=== PATIENT | male | born 1965 | race Caucasian/White ===

== ENCOUNTER 2016-12-14 08:08 | Inpatient (IN) | payer OTHER ==
[~2016-12-14] VITALS: Ht 180.3 cm; Wt 84.3 kg
[2016-12-14 08:13] VITALS: BP 176/88; PULSE 85; RESP 16; TEMP 98.2; O2SAT 99
[2016-12-14] MEDS ORDERED: NOVOLOGP2 SQ (09:41)
[2016-12-14] MEDS ORDERED: CIPR500T2 PO (09:41)
[2016-12-14] MEDS ORDERED: LANTUS2P SQ (09:41)
[2016-12-14] MEDS ORDERED: VANCOMYCIN INJ 1,000 MG in SODIUM CHLOR 0.9% 250 ML INJ 250 ML IV STA (10:13)
[2016-12-14] MEDS ORDERED: AZTREONAM INJ 2,000 MG in SODIUM CHLORIDE 0.9% INJ 100 ML IV STA (10:13)
--- NOTE | 2016-12-14 10:53 | RADRPT ---
EXAM DATE/TIME: 12/14/2016 10:43 [facility] COMPARISON: No previous studies available for comparison. INDICATIONS : Shortness of breath. MEDICAL HISTORY : Diabetes mellitus type II. SURGICAL HISTORY : None. ENCOUNTER: Initial ACUITY: 1 day PAIN SCORE: 0/10 LOCATION: Bilateral chest FINDINGS: A single view of the chest demonstrates the lungs to be symmetrically aerated without evidence of mas s, infiltrate or effusion. The cardiomediastinal contours are unremarkable. Osseous structures are intact. CONCLUSION: No acute disease. Nando Odonnell MD FACR on December 14, 2016 at 10:51 Board Certified Radiologist. This report was verified electronically.
--- NOTE | 2016-12-14 11:20 | RADRPT ---
EXAM DATE/TIME: 12/14/2016 10:38 [facility] COMPARISON: No previous studies available for comparison. INDICATIONS: Left foot pain, possible infection. MEDICAL HISTORY: Diabetes mellitus type II. SURGICAL HISTORY: None. ENCOUNTER: Initial ACUITY: 3 days PAIN SCORE: 6/10 LOCATION: Left foot, fourth digit FINDINGS: There is bony destruction proximal phalanx fourth toe consistent with osteomyelitis. There is air in the soft tissues. CONCLUSION: Findings consistent with osteomyelitis fourth toe. Nando Odonnell MD FACR on December 14, 2016 at 10:59 Board Certified Radiologist. This report was verified electronically.
--- NOTE | 2016-12-14 11:22 | RADRPT ---
EXAM DATE/TIME: 12/14/2016 10:41 [facility] COMPARISON: No previous studies available for comparison. INDICATIONS: Left ankle pain, no injury. MEDICAL HISTORY: Diabetes mellitus type II. SURGICAL HISTORY: None. ENCOUNTER: Initial ACUITY: 3 days PAIN SCORE: 6/10 LOCATION: Left lateral ankle FINDINGS: There is generalized soft tissue swelling evident. Bone density is normal, alignment is anatomic. F racture is not appreciated. CONCLUSION: Generalized soft tissue swelling otherwise negative. Nando Odonnell MD FACR on December 14, 2016 at 10:59 Board Certified Radiologist. This report was verified electronically.
[2016-12-14 11:32] VITALS: O2SAT 96
[2016-12-14 11:42] LABS: BASOPHIL % 0.5 % (0.0-2.0); EOSINOPHIL # 0.1 TH/MM3 (0-0.4); EOSINOPHIL % 0.9 % (0.0-4.0); HEMATOCRIT 31.5 % (39.0-51.0); HEMO FLAGS DIFF FINAL; LYMPH % 18.5 % (9.0-44.0); LYMPHOCYTE # 1.8 TH/MM3 (1.0-4.8); MEAN CELL VOLUME 91.6 FL (80.0-100.0); MEAN CORPUSCULAR HEMOGLOBIN 31.2 PG (27.0-34.0); MEAN CORPUSCULAR HGB CONC 34.1 % (32.0-36.0); MONO % 7.3 % (0.0-8.0); NEUT % 72.8 % (16.0-70.0); PLATELET COUNT 368 TH/MM3 (150-450); RED BLOOD COUNT 3.44 MIL/MM3 (4.50-5.90); RED CELL DISTRIBUTION WIDTH 13.5 % (11.6-17.2); WHITE BLOOD COUNT 9.6 TH/MM3 (4.0-11.0)
[2016-12-14 11:50] LABS: APTT (PATIENT) 37.3 SEC (24.3-30.1); INTERNATIONAL NORMALIZED RATIO 1.1 RATIO; PROTHROMBIN TIME - PATIENT 12.2 SEC (9.8-11.6)
--- NOTE | 2016-12-14 11:56 | PD ---
HPI Chief Complaint: Abnormal Results Time Seen by Provider: 10:06 Travel History International Travel<30 days: No Contact w/Intl Traveler<30days: No Traveled to known affect area: No History of Present Illness HPI Patient is a 51-year-old male presents emergency department for evaluation of left fourth toe infection. He is a diabetic. Has been following outpatient with Eliana Dimas Dr. podiatry medicine. Patient was sent here on her orders for consideration of admission IV antibiotics and podiatry consultation. PFSH Past Medical History Diabetes: Yes Patient Takes Glucophage: No Diminished Hearing: No Tetanus Vaccination: < 5 Years Influenza Vaccination: No Past Surgical History Tonsillectomy: Yes Social History Alcohol Use: No Tobacco Use: Yes (11/07 ppd) Substance Use: No Allergies-Medications (Allergen,Severity, Reaction): Coded Allergies: Penicillin (Verified Allergy, Unknown, 12/14/16) Reported Meds & Prescriptions Reported Meds & Active Scripts Active Reported Novolog Inj (Insulin Aspart) 1,000 Unit/10 Ml Vial 0 SQ DIRECTED Sliding Scale as directed. Lantus Inj (Insulin Glargine) 1,000 Unit/10 Ml Vial 30 Units SQ BID Ciprofloxacin (Ciprofloxacin HCl) 500 Mg Tab 500 Mg PO BID Physical Exam Narrative GENERAL: WD/WN in nad. SKIN: Warm and dry. HEAD: Atraumatic. Normocephalic. EYES: Pupils equal and round. No scleral icterus. No injection or drainage. ENT: No nasal bleeding or discharge. Mucous membranes pink and moist. NECK: Trachea midline. No JVD. CARDIOVASCULAR: Regular rate and rhythm. RESPIRATORY: No accessory muscle use. Clear to auscultation. Breath sounds equal bilaterally. GASTROINTESTINAL: Abdomen soft, non-tender, nondistended. Hepatic and splenic margins not palpable. MUSCULOSKELETAL: Extremities without clubbing, cyanosis. There is erythema and swelling of the left foot terminating right at the ankle. There are signs of adequate perfusion of the foot except for the left fourth toe. This toe has discharge, smells of pseudomonas. It is abraided away in the dorsal direction and is ischemic distally to the break in the skin ( approximately 2/3 the length of the toe). there is some mild edema at the ankle as well. No other breakages of the skin seen. RLE is WNL. NEUROLOGICAL: Awake and alert. No obvious cranial nerve deficits. Motor grossly within normal limits. Five out of 5 muscle strength in the arms and legs. Normal speech. PSYCHIATRIC: Appropriate mood and affect; insight and judgment normal. Data Data Last Documented VS Vital Signs Date Time Temp Pulse Resp B/P Pulse Ox O2 Delivery O2 Flow Rate FiO2 12/14/16 12:30 74 17 168/80 97 Room Air 12/14/16 08:13 98.2 Orders Electrocardiogram (12/14/16 10:13) Complete Blood Count With Diff (12/14/16 10:13) Comprehensive Metabolic Panel (12/14/16 10:13) Prothrombin Time / Inr (Pt) (12/14/16 10:13) Act Partial Throm Time (Ptt) (12/14/16 10:13) Lactic Acid Sepsis Protocol (12/14/16 10:13) Magnesium (Mg) (12/14/16 10:13) Phosphorus (Po4) (12/14/16 10:13) Ckmb (Isoenzyme) Profile (12/14/16 10:13) Troponin I (12/14/16 10:13) Urinalysis - C+S If Indicated (12/14/16 10:13) Blood Culture (12/14/16 10:13) Chest, Single Ap (12/14/16 10:13) Blood Glucose (12/14/16 10:13) Ecg Monitoring (12/14/16 10:13) Iv Access Insert/Monitor (12/14/16 10:13) Oximetry (12/14/16 10:13) Oxygen Administration (12/14/16 10:13) Vancomycin Inj (Vancomycin Inj) (12/14/16 10:13) Aztreonam Inj (Azactam Inj) (12/14/16 10:13) Foot, Complete (Uqs2bcm) (12/14/16 ) Ankle, Complete (Tsn2oxb) (12/14/16 ) ^ Other Nursing Orders (12/14/16 12:08) Diet 1800 Ada Cons Carb (12/14/16 Lunch) Vital Signs (Adult) KULWINDER.Q4H (12/14/16 12:54) Acetaminophen (Tylenol) (12/14/16 13:00) ^ Blood Glucose Goal (Criteria (12/14/16 12:54) ^ Hypoglycemia 51 - 69 Mg/Dl (12/14/16 12:54) ^ Hypoglycemia 50 Mg/Dl Or < (12/14/16 12:54) ^ Notify Dr: Other (12/14/16 12:54) Dextrose 50% In Dashawn (Vial) Inj (D50w (Vi (12/14/16 13:00) Glucagon Inj (Glucagon Inj) (12/14/16 13:00) Insulin Aspart Supplemtl Scale (Novolog (12/14/16 16:00) Ondansetron Inj (Zofran Inj) (12/14/16 13:00) Consult Podiatry (12/14/16 ) Admit Order (Ed Use Only) (12/14/16 ) Labs Laboratory Tests Test 12/14/16 12/14/16 11:10 11:15 White Blood Count 9.6 TH/MM3 Red Blood Count 3.44 MIL/MM3 Hemoglobin 10.7 GM/DL Hematocrit 31.5 % Mean Corpuscular Volume 91.6 FL Mean Corpuscular Hemoglobin 31.2 PG Mean Corpuscular Hemoglobin 34.1 % Concent Red Cell Distribution Width 13.5 % Platelet Count 368 TH/MM3 Mean Platelet Volume 6.6 FL Neutrophils (%) (Auto) 72.8 % Lymphocytes (%) (Auto) 18.5 % Monocytes (%) (Auto) 7.3 % Eosinophils (%) (Auto) 0.9 % Basophils (%) (Auto) 0.5 % Neutrophils # (Auto) 7.0 TH/MM3 Lymphocytes # (Auto) 1.8 TH/MM3 Monocytes # (Auto) 0.7 TH/MM3 Eosinophils # (Auto) 0.1 TH/MM3 Basophils # (Auto) 0.0 TH/MM3 CBC Comment DIFF FINAL Differential Comment Erythrocyte Sedimentation Rate GREATER THAN 140 mm/hr Prothrombin Time 12.2 SEC Prothromb Time International 1.1 RATIO Ratio Activated Partial 37.3 SEC Thromboplast Time Sodium Level 138 MEQ/L Potassium Level 4.4 MEQ/L Chloride Level 110 MEQ/L Carbon Dioxide Level 19.4 MEQ/L Anion Gap 9 MEQ/L Blood Urea Nitrogen 19 MG/DL Creatinine 1.21 MG/DL Estimat Glomerular Filtration 63 ML/MIN Rate Random Glucose 116 MG/DL Calcium Level 8.7 MG/DL Phosphorus Level 3.4 MG/DL Magnesium Level 2.0 MG/DL Total Bilirubin 0.2 MG/DL Aspartate Amino Transf 28 U/L (AST/SGOT) Alanine Aminotransferase 29 U/L (ALT/SGPT) Alkaline Phosphatase 142 U/L Total Creatine Kinase 74 U/L Troponin I LESS THAN 0.02 NG/ML Total Protein 7.3 GM/DL Albumin 2.6 GM/DL Lactic Acid Level 0.9 mmol/L [facility] Medical Decision Making Medical Screen Exam Complete: Yes Emergency Medical Condition: Yes Differential Diagnosis Osteomyelitis, Wet gangrene of toe, sepsis, diabetes mellitus, arterial blockage unlikely. Narrative Course CATHERINE performed and WNL. Patient appears well and non-toxic. Foot appears cellulitis and i have high concern for osteomyelitis. Patient does have note from his commercial baker helper to start broad spectrum and admit to Dr. Wagner for surgical intervention. Patient discussed with Dr. Wagner who is expecting patient. for partial amputation the morning. Discussed with him MRI and will defer to admitting team. He is being covered for osteomyelitis. My concern for ischemic foot is low and i believe risks of contrast induced nephropathy outweigh benefits of CTA at this time.. Last 24 hours Impressions Chest X-Ray 12/14/16 1013 Signed Impressions: Service Date/Time: Wednesday, December 14, 2016 10:43 - CONCLUSION: No acute disease. Nando Odonnell MD FACR Foot X-Ray 12/14/16 0000 Signed Impressions: Service Date/Time: Wednesday, December 14, 2016 10:38 - CONCLUSION: Findings consistent with osteomyelitis fourth toe. Nando Odonnell MD FACR Ankle X-Ray 12/14/16 0000 Signed Impressions: Service Date/Time: Wednesday, December 14, 2016 10:41 - CONCLUSION: Generalized soft tissue swelling otherwise negative. Nando Odonnell MD FACR Diagnosis Primary Impression: Diabetic wet gangrene of the foot Additional Impression: Osteomyelitis of toe Admitting Information Admitting Physician Requests: Admit Condition: Stable Jaycob Deleon MD Dec 14, 2016 11:56
[2016-12-14 12:16] LABS: ALKALINE PHOSPHATASE 142 U/L (45-117); ALT (GPT) 29 U/L (12-78); ANION GAP 9 MEQ/L (5-15); AST (GOT) 28 U/L (15-37); BICARBONATE 19.4 MEQ/L (21.0-32.0); BLOOD UREA NITROGEN 19 MG/DL (7-18); CHLORIDE 110 MEQ/L (98-107); GLOMERULAR FILTRATION RATE 63 ML/MIN (>89); POTASSIUM 4.4 MEQ/L (3.5-5.1); SODIUM (NA) 138 MEQ/L (136-145); TOTAL BILIRUBIN ADULT 0.2 MG/DL (0.2-1.0)
[2016-12-14 12:30] VITALS: BP 168/80; PULSE 74; RESP 17; O2SAT 97
[2016-12-14 12:32] LABS: CREATINE KINASE 74 U/L (39-308)
[2016-12-14] MEDS ORDERED: ONDANSETRON HCL 4 MG/2 ML VIAL IV PUSH PRN (13:00)
[2016-12-14] MEDS ORDERED: GLUCAGON 1 MG/ML VIAL OTHER PRN (13:00)
[2016-12-14] MEDS ORDERED: ACETAMINOPHEN 325 MG TAB PO PRN (13:00)
[2016-12-14] MEDS ORDERED: DEXTROSE 50% IN WATER 50 ML VIAL(D50) IV PUSH PRN (13:00)
[2016-12-14] MEDS ORDERED: Vancomycin Consult Pharmacy 1 EA OTHER SCH (13:15)
--- NOTE | 2016-12-14 13:19 | HHI.HP ---
[facility] Service [facility] Primary Care Physician No Primary Care Physician Admission Diagnosis Osteomyelitis and gangrene of toe. Diagnoses: (1) Osteomyelitis of toe Diagnosis: Principal Chief Complaint: infection of the left fourth toe Travel History International Travel<30 Days: No Contact w/Intl Traveler <30 Da: No Traveled to Known Affected Are: No History of Present Illness patient is a 51 y/o male with history of diabetes who was sent to the hospital because of the worsening infection of the left fourth toe. he says that it started two weeks ago with some swelling and pain to the site. he took two different antibiotics for two weeks with no significant improvement. he reports low grade fever at home. he was seen by his product lister and was supposed to come to the hospital yesterday but he says that he didn't want to wait that long. pain was mild at the time of my evaluation. he denies any other complaints. Review of Systems Constitutional: COMPLAINS OF: Fever, DENIES: Weight loss, Chills, Night Sweats Eyes: DENIES: Blurred vision, Diplopia, Vision loss, Double Vision Ears, nose, mouth, throat: DENIES: Tinnitus, Vertigo, Throat pain, Epistaxis Respiratory: DENIES: Apneas, Cough, Snoring, Wheezing, Hemoptysis, Sputum production, Shortness of breath Cardiovascular: DENIES: Chest pain, Palpitations, Syncope, Dyspnea on Exertion , PND, Lower Extremity Edema, Orthopnea, Claudication Gastrointestinal: DENIES: Abdominal pain, Black stools, Bloody stools, Constipation, Diarrhea, Nausea, Vomiting, Difficulty Swallowing, Anorexia Genitourinary: DENIES: Urinary frequency, Urgency, Hematuria, Dysuria Musculoskeletal: COMPLAINS OF: Joint pain (left foot.), DENIES: Muscle aches, Stiffness, Joint Swelling Integumentary: DENIES: Rash Neurologic: DENIES: Abnormal gait, Headache, Localized weakness, Paresthesias, Seizures, Speech Problems, Tremor, Poor Balance Psychiatric: DENIES: Anxiety, Confusion, Mood changes, Depression, Hallucinations, Agitation, Suicidal Ideation, Homicidal Ideation, Delusions Past Family Social History Past Medical History diabetes mellitus Past Surgical History knee and foot surgery. Reported Medications Novolog Inj (Insulin Aspart) 1,000 Unit/10 Ml Vial 0 SQ DIRECTED Sliding Scale as directed. Lantus Inj (Insulin Glargine) 1,000 Unit/10 Ml Vial 30 Units SQ BID Ciprofloxacin (Ciprofloxacin HCl) 500 Mg Tab 500 Mg PO BID Allergies: Coded Allergies: Penicillin (Verified Allergy, Unknown, 12/14/16) Active Ordered Medications Current Medications Vancomycin HCl 1000 mg/Sodium Chloride 250 ml @ 250 mls/hr ONCE STAT IV Last administered on 12/14/16 11:43; Start 12/14/16 at 10:13; Stop 12/14/16 at 11:12; Status DC Aztreonam/Sodium Chloride (Azactam Inj/NS Inj) 100 ml @ 200 mls/hr ONCE STAT IV Last administered on 12/14/16 13:04; Start 12/14/16 at 10:13; Stop 12/14/16 at 10:42; Status DC Acetaminophen (Tylenol) 650 mg Q4H PRN PO FEVER; Start 12/14/16 at 13:00 Dextrose (D50w (Vial) Inj) 25 ml UNSCH PRN IV PUSH HYPOGLYCEMIA-SEE COMMENTS; Start 12/14/16 at 13:00 Glucagon (Glucagon Inj) 1 mg UNSCH PRN OTHER HYPOGLYCEMIA-SEE COMMENTS; Start 12/14/16 at 13:00 Insulin Aspart (NovoLOG SUPPLEMENTAL SCALE) 1 ACHS SLIDING SCALE SQ ; Start 12/14/16 at 16:00 Ondansetron HCl (Zofran Inj) 4 mg Q8HR PRN IV PUSH NAUSEA; Start 12/14/16 at 13: 00 Family History diabetes. Social History smokes 15 cigarettes a day- doesn't drink. Physical Exam Vital Signs Vital Signs Date Time Temp Pulse Resp B/P Pulse Ox O2 Delivery O2 Flow Rate FiO2 12/14/16 12:30 74 17 168/80 97 Room Air 12/14/16 11:32 96 Room Air 12/14/16 08:13 98.2 85 16 176/88 99 Physical Exam GENERAL: This is a well-nourished, well-developed patient, in no apparent distress. SKIN: infected left fourth toe. HEAD: Atraumatic. Normocephalic. No temporal or scalp tenderness. EYES: Pupils equal round and reactive. Extraocular motions intact. No scleral icterus. No injection or drainage. ENT: Nose without bleeding, purulent drainage or septal hematoma. Throat without erythema, tonsillar hypertrophy or exudate. Uvula midline. Airway patent. NECK: Trachea midline. No JVD or lymphadenopathy. Supple, nontender, no meningeal signs. CARDIOVASCULAR: Regular rate and rhythm without murmurs, gallops, or rubs. RESPIRATORY: Clear to auscultation. Breath sounds equal bilaterally. No wheezes , rales, or rhonchi. GASTROINTESTINAL: Abdomen soft, non-tender, nondistended. No hepato-splenomegaly , or palpable masses. No guarding. MUSCULOSKELETAL: Extremities without clubbing, cyanosis, or edema. No joint tenderness, effusion, or edema noted. No calf tenderness. Negative Homans sign bilaterally. NEUROLOGICAL: Awake and alert. Cranial nerves II through XII intact. Motor and sensory grossly within normal limits. Five out of 5 muscle strength in all muscle groups. Normal speech. Laboratory Laboratory Tests Test 12/14/16 12/14/16 11:10 11:15 White Blood Count 9.6 Red Blood Count 3.44 Hemoglobin 10.7 Hematocrit 31.5 Mean Corpuscular Volume 91.6 Mean Corpuscular Hemoglobin 31.2 Mean Corpuscular Hemoglobin 34.1 Concent Red Cell Distribution Width 13.5 Platelet Count 368 Mean Platelet Volume 6.6 Neutrophils (%) (Auto) 72.8 Lymphocytes (%) (Auto) 18.5 Monocytes (%) (Auto) 7.3 Eosinophils (%) (Auto) 0.9 Basophils (%) (Auto) 0.5 Neutrophils # (Auto) 7.0 Lymphocytes # (Auto) 1.8 Monocytes # (Auto) 0.7 Eosinophils # (Auto) 0.1 Basophils # (Auto) 0.0 CBC Comment DIFF FINAL Differential Comment Prothrombin Time 12.2 Prothromb Time International 1.1 Ratio Activated Partial 37.3 Thromboplast Time Sodium Level 138 Potassium Level 4.4 Chloride Level 110 Carbon Dioxide Level 19.4 Anion Gap 9 Blood Urea Nitrogen 19 Creatinine 1.21 Estimat Glomerular Filtration 63 Rate Random Glucose 116 Calcium Level 8.7 Phosphorus Level 3.4 Magnesium Level 2.0 Total Bilirubin 0.2 Aspartate Amino Transf 28 (AST/SGOT) Alanine Aminotransferase 29 (ALT/SGPT) Alkaline Phosphatase 142 Total Creatine Kinase 74 Troponin I LESS THAN 0.02 Total Protein 7.3 Albumin 2.6 Lactic Acid Level 0.9 Date/Time Procedure Status Source Growth 12/14/16 11:15 Aerobic Blood Culture Received Blood Peripheral Pending 12/14/16 11:15 Anaerobic Blood Culture Received Blood Peripheral Pending Result Diagram: 12/14/16 1110 12/14/16 1110 Imaging Last Impressions Chest X-Ray 12/14/16 1013 Signed Impressions: Service Date/Time: Wednesday, December 14, 2016 10:43 - CONCLUSION: No acute disease. Nando Odonnell MD FACR Assessment and Plan Assessment and Plan A/P - infected/ osteomyelitis of the left fourth toe continue with broad-spectrum IV antibiotics- will follow the cultures- consult podiatry and ID -diabetes mellitus; resume home insulin regimen- accu-check with SSI -DVT prophylaxis; pending podiatry evaluation. Discussed Condition With ER physician and the patient. Physician Certification 2 Midnight Certification Type: Admission for Inpatient Services Order for Inpatient Services The services are ordered in accordance with Medicare regulations or non- Medicare payer requirements, as applicable. In the case of services not specified as inpatient-only, they are appropriately provided as inpatient services in accordance with the 2-midnight benchmark. Estimated LOS (days): 3 days is the estimated time the patient will need to remain in the hospital, assuming treatment plan goals are met and no additional complications. Post-Hospital Plan: Home Tarah Rothman MD Dec 14, 2016 13:19
[2016-12-14 13:25] VITALS: BP_SYST 142; BP_SYST 149; BP_SYST 168; BP_DIAS 68; BP_DIAS 81; PULSE 70
[2016-12-14] MEDS ORDERED: LEVOFLOXACIN 500 MG PREMIX INJ 100 ML IV SCH (14:00)
[2016-12-14] MEDS: ACETAMINOPHEN/HYDROcodone 325 MG/5 MG TAB PO PRN ×2 (14:45→19:47)
[2016-12-14 14:48] VITALS: BP 169/82; PULSE 71; RESP 20; O2SAT 96
--- NOTE | 2016-12-14 15:37 | PD.CONS ---
History of Present Illness Service Infcetious Disease Consult Requested By Dr Rothman Reason for Consult Evaluate patient with osteo L 4th toe Primary Care Physician No Primary Care Physician Diagnoses: History of Present Illness Patient seen and examined. Records reviewed. Patient is a 51-year-old male presented to the hospital for further evaluation of his left fourth toe. His problem started probably about 3-1/2 weeks ago when he noted a sore area on his left fourth toe. He was having some pain, swelling and redness and notices a sore spot on the lateral aspect of that fourth toe where his pinky toe was rubbing. He was not improving so he saw a music pastor 3 days later and he was given a prescription. He had clindamycin 300 3 times a day since November 23, and apparently had a second antibiotic Cipro 500 twice a day which he started taking November 30. He had one episode of fever up to 103. He was not improving and about 3-4 days ago he started noticing a smell. It also started changing color so he saw the music pastor prior to admission and the patient was told to go the hospital for admission. Patient also has noted swelling on his left foot and ankle. Patient however did not present to the hospital until today the day of admission. He denies any respiratory complaints far sore throat of any cough. No nausea or vomiting , abdominal pain or any urinary complaints. Patient states he has neuropathy. Patient despite the problem with his support will continue to wear shoes and not to offloading. Since admission he has not had any fever. His WBC is normal. Sedimentation rate is greater than 140. X-ray of the foot shows osteomyelitis on his left fourth toe. Infectious disease consultation has been requested to evaluate the patient. Review of Systems Constitutional: COMPLAINS OF: Fever, DENIES: Chills Eyes: DENIES: Eye pain Ears, nose, mouth, throat: DENIES: Nasal discharge, Oral lesions, Throat pain, Ear Pain, Running Nose, Sinus Pain Respiratory: DENIES: Cough, Shortness of breath Cardiovascular: DENIES: Chest pain, Palpitations Gastrointestinal: DENIES: Abdominal pain, Diarrhea, Nausea, Vomiting, Difficulty Swallowing Genitourinary: DENIES: Dysuria Musculoskeletal: COMPLAINS OF: Joint pain, Joint Swelling Integumentary: COMPLAINS OF: Nail changes, DENIES: Rash Neurologic: DENIES: Headache Psychiatric: COMPLAINS OF: Anxiety Past Family Social History Allergies: Coded Allergies: Penicillin (Verified Allergy, Unknown, 12/14/16) Past Medical History Diabetes Past Surgical History Right knee surgery Infection on the left foot and subsequent surgery after stepping on glass Active Ordered Medications Levaquin Zofran vancomycin Tylenol Frontier Insulin Social History Smokes 15 cigarettes per day Denies ETOH abuse Denies drug use Physical Exam Vital Signs Vital Signs Date Time Temp Pulse Resp B/P Pulse Ox O2 Delivery O2 Flow Rate FiO2 12/14/16 14:48 71 20 169/82 96 Room Air 12/14/16 13:25 70 168/81 149/81 142/68 12/14/16 12:30 74 17 168/80 97 Room Air 12/14/16 11:32 96 Room Air 12/14/16 08:13 98.2 85 16 176/88 99 Physical Exam GENERAL: This is a well-nourished, well-developed male, awake and alert, in no apparent distress. SKIN: Cool and dry. No generalized rash or ecchymosis. HEAD: Atraumatic. Normocephalic. No temporal or scalp tenderness. EYES: [place] conjunctivae. Pupils equal round and reactive. Extraocular motions intact. No scleral icterus. No injection or drainage. ENT: Nose without bleeding, or purulent drainage. Moist oral mucosa. Throat without erythema, or exudate. Uvula midline. Airway patent. NECK: Trachea midline. No JVD or lymphadenopathy. Supple, nontender, no meningeal signs. CARDIOVASCULAR: Regular rate and rhythm without murmurs, gallops, or rubs. RESPIRATORY: Clear to auscultation. Breath sounds equal bilaterally. No wheezes , rales, or rhonchi. GASTROINTESTINAL: Abdomen soft, non-tender, nondistended. Bowel sounds are present and normoactive. No hepato-splenomegaly, or palpable masses. No guarding. MUSCULOSKELETAL: RLE without clubbing, cyanosis, or edema. LLE no clubbing or cyanosis, has swelling from his L ankle down to his whole L foot. There is gangrene of his L 4th toe with evidence of yellow fluid at base of his 4th toe on plantar aspect. (+) foul odor. No joint effusion, or edema noted. No calf tenderness. Negative Homans sign bilaterally. NEUROLOGICAL: Awake and alert. Cranial nerves II through XII intact. Motor and sensory grossly within normal limits. Five out of 5 muscle strength in all muscle groups. Normal speech. PSYCH: Calm and cooperative LINE: PIV with no evidence of infection Laboratory Laboratory Tests Test 12/14/16 12/14/16 11:10 11:15 White Blood Count 9.6 Red Blood Count 3.44 Hemoglobin 10.7 Hematocrit 31.5 Mean Corpuscular Volume 91.6 Mean Corpuscular Hemoglobin 31.2 Mean Corpuscular Hemoglobin 34.1 Concent Red Cell Distribution Width 13.5 Platelet Count 368 Mean Platelet Volume 6.6 Neutrophils (%) (Auto) 72.8 Lymphocytes (%) (Auto) 18.5 Monocytes (%) (Auto) 7.3 Eosinophils (%) (Auto) 0.9 Basophils (%) (Auto) 0.5 Neutrophils # (Auto) 7.0 Lymphocytes # (Auto) 1.8 Monocytes # (Auto) 0.7 Eosinophils # (Auto) 0.1 Basophils # (Auto) 0.0 CBC Comment DIFF FINAL Differential Comment Erythrocyte Sedimentation Rate GREATER THAN 140 Prothrombin Time 12.2 Prothromb Time International 1.1 Ratio Activated Partial 37.3 Thromboplast Time Sodium Level 138 Potassium Level 4.4 Chloride Level 110 Carbon Dioxide Level 19.4 Anion Gap 9 Blood Urea Nitrogen 19 Creatinine 1.21 Estimat Glomerular Filtration 63 Rate Random Glucose 116 Calcium Level 8.7 Phosphorus Level 3.4 Magnesium Level 2.0 Total Bilirubin 0.2 Aspartate Amino Transf 28 (AST/SGOT) Alanine Aminotransferase 29 (ALT/SGPT) Alkaline Phosphatase 142 Total Creatine Kinase 74 Troponin I LESS THAN 0.02 Total Protein 7.3 Albumin 2.6 Lactic Acid Level 0.9 Date/Time Procedure Status Source Growth 12/14/16 11:15 Aerobic Blood Culture Received Blood Peripheral Pending 12/14/16 11:15 Anaerobic Blood Culture Received Blood Peripheral Pending Result Diagram: 12/14/16 1110 12/14/16 1110 Imaging Chest X-Ray 12/14/16 1013 Signed Impressions: Service Date/Time: Wednesday, December 14, 2016 10:43 - CONCLUSION: No acute disease. Nando Odonnell MD FACR Foot X-Ray 12/14/16 0000 Signed Impressions: Service Date/Time: Wednesday, December 14, 2016 10:38 - CONCLUSION: Findings consistent with osteomyelitis fourth toe. Nando Odonnell MD FACR Ankle X-Ray 12/14/16 0000 Signed Impressions: Service Date/Time: Wednesday, December 14, 2016 10:41 - CONCLUSION: Generalized soft tissue swelling otherwise negative. Nando Odonnell MD FACR Assessment and Plan Assessment and Plan IMPRESSION Sepsis due to L foot infection Diabetic foot infection L with gangrene and osteo L 4th toe - usually polymicrobial Allergy to PCN - can't remember type of reaction - could not remember if he has taken any kind of Cephalosporins RECOMMENDATION Add Azactam and Flagyl Continue Levaquin and Vancomycin Needs amputation of 4th toe and debridement Arterial doppler to check circulation Follow C/S Monitor progress I will determine course of Abx depending on work-up and surgical intervention done I will follow along with you Thank you for this consultation Discussed Condition With Explained plan to patient Tory To MD Dec 14, 2016 15:37
--- NOTE | 2016-12-14 16:54 | EKG ---
Date Performed: 12/14/2016 Time Performed: 11:30:15 PTAGE: 51 years EKG: Sinus rhythm SEPTAL MYOCARDIAL INFARCTION Versus normal variant. ABNORMAL ECG NO PREVIOUS TRACING DOCTOR: Mayo Ashby Interpretating Date/Time 12/14/2016 16:53:48
[2016-12-14] MEDS: metroNIDAZOLE 500 MG TAB PO SCH ×2 (17:38→23:00)
[2016-12-14] MEDS: INSULIN ASPART SUPPLEMENTAL SCALE SQ SCH ×2 (17:39→20:45)
[2016-12-14] MEDS: REMOVE OLD NICODERM (NICOTINE) PATCH TD SCH (18:00)
[2016-12-14] MEDS: NICOTINE 21 MG/24 HR PATCH TD SCH (18:31)
--- NOTE | 2016-12-14 18:48 | MB ---
cc: MISTY ANDERSON DPM DATE OF CONSULTATION: 12/14/2016 REASON FOR CONSULTATION: Left fourth digit gangrene. HISTORY OF PRESENT ILLNESS A patient is a 51-year-old male who has been followed by my associate outpatient, Dr. Eliana Dimas. Apparently he noticed significant decline in the digit, followed outpatient and there was noted to be signs of slow progression of gangrene. He was then requested to go to the emergency room. Currently I am seeing the patient bedside. He has swelling of the foot, ankle and leg, however, pain is localized to the forefoot. The patient has a history of glass that was in his foot. It took almost six months to heal. He does recall his last hemoglobin A1c was 9. He does also report that he continues to smoke. PAST MEDICAL HISTORY: 1. Infection of the left foot after stepping on glass. PAST SURGICAL HISTORY: Right knee surgery. OUTPATIENT MEDICATIONS: Reviewed and verified. INPATIENT MEDICATIONS: The patient is receiving antibiotics. Vancomycin. Aztreonam. Levaquin. Please see complete med list in chart. ALLERGIES: PENICILLIN PHYSICAL EXAMINATION: VITAL SIGNS: Temperature is 98.2, pulse rate is 71, respiratory rate is 16, blood pressure is 169/82. He is sating 96% on room air. GENERAL: The patient is an alert, oriented male seen bedside, exhibiting nonlabored respirations. Extremities: Bilateral lower extremities is examined. The right lower extremity is without any soft tissue injury. The left lower extremity is examined. There is pitting edema of the dorsum of the foot as well as the ankle. There is a dry necrotic black in appearance, left fourth digit with induration around the periwound edges. There is no obvious soft tissue emphysema. The compartments appear soft of the foot and leg. No signs of necrotizing fasciitis. The infection appears to be isolated to the digit and possibly at the level of the fourth MPJ. Capillary fill time of the digit is without, however, digits 1, 2, 3 and 5 have good capillary fill time. Pulses are palpable. Sensation is decreased to light touch. There is no crepitus or instability upon range of motion of the hind foot or ankle. LABORATORY FINDINGS: White blood cell 9.6, ESR greater than 140, hemoglobin and hematocrit 10/31, platelet count is 368. Chem 7, sodium 138, potassium 4.4, chloride 110. CO2 19.4, BUN is 19. Creatinine 1.21. Coagulation profile, PT 12.2, INR 1.1. IMAGING STUDIES: Evidence of bony erosion of the left fourth digit with gas, isolated to the digit tissue. Ankle x-ray, generalized soft tissue swelling, no gas noted. ASSESSMENT AND PLAN: Left fourth digit gangrene with diabetic foot infection. The plan is for amputation of the left fourth digit tomorrow with possible incision and drainage of the foot. The patient was counseled on the need for hyperglycemic control as well as the need to quit smoking. We will follow along after surgery. The patient will likely need IV antibiotics for at least a few days possibly 1-2 weeks. I reviewed infectious disease consultation and agree. I will see the patient tomorrow morning for surgical intervention. OLU Jensen/CAROLYN /5:29 PM /6:26 PM
[2016-12-14 20:00] VITALS: BP 133/65; PULSE 79; RESP 20; TEMP 99.9; O2SAT 98
[2016-12-14] MEDS: VANCOMYCIN INJ 1,500 MG in SODIUM CHLORID 0.9% 500 ML INJ 500 ML IV SCH (20:44)
[2016-12-14] MEDS: INSULIN DETEMIR 100 UNITS/ML VIAL SQ SCH (20:45)
[2016-12-14] MEDS: AZTREONAM INJ 2,000 MG in SODIUM CHLORIDE 0.9% INJ 100 ML IV SCH (22:54)
[2016-12-15] VITALS: BP 127/61; PULSE 70; RESP 20; TEMP 99.3; O2SAT 98
[2016-12-15 04:00] VITALS: BP 119/63; PULSE 68; RESP 20; TEMP 97.5; O2SAT 97
[2016-12-15] MEDS: AZTREONAM INJ 2,000 MG in SODIUM CHLORIDE 0.9% INJ 100 ML IV SCH ×3 (05:26→21:49)
[2016-12-15] MEDS: ACETAMINOPHEN/HYDROcodone 325 MG/5 MG TAB PO PRN ×5 (05:27→21:48)
[2016-12-15] MEDS ORDERED: BUPIVACAINE HCL PF 0.25% 30 ML VIAL ONE (06:55)
[2016-12-15] MEDS: INSULIN ASPART SUPPLEMENTAL SCALE SQ SCH ×4 (07:00→21:00)
[2016-12-15] MEDS ORDERED: FAMOTIDINE 20 MG/2 ML VIAL ONE (07:34)
[2016-12-15] MEDS ORDERED: MIDAZOLAM HCL 2 MG/2 ML VIAL ONE (07:34)
[2016-12-15] MEDS ORDERED: NEOMYCIN/POLYMYXIN 1 ML G.U. IRRIGANT IR ONE (08:02)
[2016-12-15] MEDS ORDERED: DO NOT ADM ANY ANTICOAGULANT DRUGS XX PRN ×2 (08:35→09:30)
--- NOTE | 2016-12-15 08:36 | PD.OP ---
Operative Report Left 4th digit gangrene, abscess foot Postoperative Diagnosis: same Procedure: Left 4th digit amputation, incision and drainage left foot Anesthesia: General w local Surgeon: Michael Capone Flight Software Test Engineer(s): scrub Resident Surgeon: none Operation and Findings: no clinical signs of OM of the 4th met head Minimal blood loss. Michael CaponeM Dec 15, 2016 08:36
[2016-12-15] MEDS ORDERED: fentaNYL CITRATE 250 MCG/5 ML AMP ONE (08:41)
[2016-12-15] MEDS ORDERED: oxyCODONE/ACETAMINOPHEN 7.5 MG/325 MG TAB PO PRN (09:00)
[2016-12-15] MEDS: REMOVE OLD NICODERM (NICOTINE) PATCH TD SCH (09:00)
[2016-12-15] MEDS: VANCOMYCIN INJ 1,500 MG in SODIUM CHLORID 0.9% 500 ML INJ 500 ML IV SCH ×2 (09:48→21:49)
[2016-12-15] MEDS: INSULIN DETEMIR 100 UNITS/ML VIAL SQ SCH ×2 (09:48→21:49)
[2016-12-15] MEDS: metroNIDAZOLE 500 MG TAB PO SCH ×2 (09:50→16:00)
[2016-12-15] MEDS: LEVOFLOXACIN 750 MG TAB PO SCH (09:50)
[2016-12-15] MEDS: NICOTINE 21 MG/24 HR PATCH TD SCH (09:50)
--- NOTE | 2016-12-15 11:52 | HHI.PR ---
Subjective Remarks resting comfortably with no distress. pain is controlled. no fever. no new complaints. Objective Vitals Vital Signs Date Time Temp Pulse Resp B/P Pulse Ox O2 Delivery O2 Flow Rate FiO2 12/15/16 11:28 18 12/15/16 08:55 72 14 136/80 97 Nasal Cannula 2 12/15/16 08:45 71 12 136/78 98 Nasal Cannula 2 12/15/16 08:31 98.4 73 15 116/70 92 Nasal Cannula 2 12/15/16 04:00 97.5 68 20 119/63 97 12/15/16 00:00 99.3 70 20 127/61 98 12/14/16 20:00 99.9 79 20 133/65 98 12/14/16 19:15 98 12/14/16 14:48 71 20 169/82 96 Room Air 12/14/16 13:25 70 168/81 149/81 142/68 12/14/16 12:30 74 17 168/80 97 Room Air I/O 12/14/16 12/14/16 12/14/16 12/15/16 12/15/16 12/15/16 07:00 15:00 23:00 07:00 15:00 23:00 Intake Total 0 ml 1210 ml Output Total 240 ml 18 ml Balance -240 ml 1192 ml Intake Oral 0 ml IV Total 710 ml Other 500 ml Output Urine Total 240 ml Estimated Blood Loss 18 ml # Voids 2 # Bowel Movements 0 0 Result Diagram: 12/14/16 1110 12/14/16 1110 Imaging Last Impressions Chest X-Ray 12/14/16 1013 Signed Impressions: Service Date/Time: Wednesday, December 14, 2016 10:43 - CONCLUSION: No acute disease. Nando Odonnell MD FACR Foot X-Ray 12/14/16 0000 Signed Impressions: Service Date/Time: Wednesday, December 14, 2016 10:38 - CONCLUSION: Findings consistent with osteomyelitis fourth toe. Nando Odonnell MD FACR Ankle X-Ray 12/14/16 0000 Signed Impressions: Service Date/Time: Wednesday, December 14, 2016 10:41 - CONCLUSION: Generalized soft tissue swelling otherwise negative. Nando Odonnell MD FACR Objective Remarks GENERAL: This is a well-nourished, well-developed patient, in no apparent distress. CARDIOVASCULAR: Regular rate and regular rhythm without murmurs, gallops, or rubs. RESPIRATORY: Clear to auscultation. Breath sounds equal bilaterally. No wheezes , rales, or rhonchi. GASTROINTESTINAL: Abdomen soft, non-tender, nondistended. Normal, active bowel sounds MUSCULOSKELETAL: left foot covered with clean dressing. NEURO: Alert & Oriented x4 to person, place, time, situation. Moves all ext x4 Procedures Left 4th digit amputation, incision and drainage left foot Medications and IVs Current Medications Vancomycin HCl 1000 mg/Sodium Chloride 250 ml @ 250 mls/hr ONCE STAT IV Last administered on 12/14/16 11:43; Start 12/14/16 at 10:13; Stop 12/14/16 at 11:12; Status DC Aztreonam/Sodium Chloride (Azactam Inj/NS Inj) 100 ml @ 200 mls/hr ONCE STAT IV Last administered on 12/14/16 13:04; Start 12/14/16 at 10:13; Stop 12/14/16 at 10:42; Status DC Acetaminophen (Tylenol) 650 mg Q4H PRN PO FEVER/ PAIN < 5; Start 12/14/16 at 13: 00 Dextrose (D50w (Vial) Inj) 25 ml UNSCH PRN IV PUSH HYPOGLYCEMIA-SEE COMMENTS; Start 12/14/16 at 13:00 Glucagon (Glucagon Inj) 1 mg UNSCH PRN OTHER HYPOGLYCEMIA-SEE COMMENTS; Start 12/14/16 at 13:00 Insulin Aspart (NovoLOG SUPPLEMENTAL SCALE) 1 ACHS SLIDING SCALE SQ Last administered on 12/14/16 20:45; Start 12/14/16 at 16:00 Ondansetron HCl 4 mg 4 mg Q8HR PRN IV PUSH NAUSEA; Start 12/14/16 at 13:00 Pharmacy Profile Note 0 ml @ 0 mls/hr UNSCH OTHER ; Start 12/14/16 at 13:15 Levofloxacin/ Dextrose (Levaquin 500 Mg Premix Inj) 100 ml @ 100 mls/hr Q24H IV Last administered on 12/14/16 14:46; Start 12/14/16 at 14:00; Stop 12/14/16 at 15:39; Status DC Insulin Detemir (Levemir Inj) 30 units BID SQ Last administered on 12/15/16 09: 48; Start 12/14/16 at 21:00 Acetaminophen/ Hydrocodone Bitart 1 tab 1 tab Q4H PRN PO PAIN > 5 Last administered on 12/15/16 10:03; Start 12/14/16 at 13:30 Vancomycin HCl/ Sodium Chloride (Vancomycin Inj/ NS 500 ml Inj) 515 ml @ 250 mls/hr Q12H IV Last administered on 12/15/16 09:48; Start 12/14/16 at 20:00 Miscellaneous Information SPECIFIC LAB TO BE DRAWN:VANCOMYCIN TROUGH DATE TO... ONCE ONCE XX ; Start 12/16/16 at 07:45; Stop 12/16/16 at 07:46 Levofloxacin (Levaquin) 750 mg DAILY PO Last administered on 12/15/16 09:50; Start 12/15/16 at 09:00 Metronidazole 500 mg 500 mg Q8H PO Last administered on 12/15/16 09:50; Start 12/14/16 at 16:00 Aztreonam/Sodium Chloride (Azactam Inj/NS Inj) 100 ml @ 200 mls/hr Q8H IV Last administered on 12/15/16 05:26; Start 12/14/16 at 21:00 Nicotine (Habitrol 21 Mg Patch.24 Hr) 1 patch DAILY TD Last administered on 12/15 09:50; Start 12/14/16 at 18:00 Miscellaneous Information 1 DAILY TD ; Start 12/14/16 at 18:00 Bupivacaine HCl (Marcaine Pf 0.25% Inj) 30 ml STK-MED ONCE .ROUTE Last administered on 12/15/16 08:02; Start 12/15/16 at 06:55; Stop 12/15/16 at 06:56; Status DC Midazolam HCl (Versed Inj) 2 mg STK-MED ONCE .ROUTE Last administered on 07:36; Start 12/15/16 at 07:34; Stop 12/15/16 at 07:35; Status DC Famotidine (Pepcid Inj) 20 mg STK-MED ONCE .ROUTE Last administered on 07:35; Start 12/15/16 at 07:34; Stop 12/15/16 at 07:35; Status DC Oxycodone/ Acetaminophen (Percocet 7.5-325 Mg) 1 tab Q4H PRN PO PAIN SCALE 5 TO 10; Start 12/15/16 at 09:00 Fentanyl Citrate (fentaNYL INJ) 250 mcg STK-MED ONCE .ROUTE ; Start 12/15/16 at 08:41; Stop 12/15/16 at 08:42; Status DC Miscellaneous Information ALL NURSING DEPARTME... UNSCH PRN XX SEE LABEL COMMENTS; Start 12/15/16 at 08:35; Stop 12/16/16 at 08:34 Miscellaneous Information ALL NURSING DEPARTME... UNSCH PRN XX SEE LABEL COMMENTS; Start 12/15/16 at 09:30; Stop 12/16/16 at 09:29 Neomycin/Polymyxin (Neosporin G.u. Irr) 1 ml STK-MED ONCE IR Last administered on 12/15/16t 08:02; Start 12/15/16 at 08:02; Stop 12/15/16 at 11:22; Status DC A/P Assessment and Plan A/p - infected/ osteomyelitis of the left fourth toe s/p Left 4th digit amputation, incision and drainage left foot continue with broad-spectrum IV antibiotics per ID-continue with pain control. will follow the cultures- podiatry following. -diabetes mellitus; resumed home insulin regimen- accu-check with SSI -DVT prophylaxis; when ok with surgery. Tarah Rothman MD Dec 15, 2016 11:52
[2016-12-15] MEDS ORDERED: PHENYLEPH/NS 1000 MCG/10 ML SYR IV ONE (12:00)
[2016-12-15] MEDS ORDERED: ONDANSETRON HCL 4 MG/2 ML VIAL IV PUSH ONE (12:00)
[2016-12-15] MEDS ORDERED: PROPOFOL 200 MG/20 ML AMP IV ONE (12:00)
--- NOTE | 2016-12-15 12:15 | RADRPT ---
EXAM DATE/TIME: 12/14/2016 00:00 [facility] COMPARISON: No previous studies available for comparison. INDICATIONS : Osteomyelitis and gangrene of toe TECHNIQUE: Five-station segmental examination of the lower extremities was performed. Pulsed-cuff waveform tracings and pressures were recorded. Ankle-brachial indices and toe-brachial indices were calculated. PRESSURES (mmHg): Brachial (arm): Right 145 Left 145 Lower Thigh: Right 146 Left 113 Calf: Right 133 Left 118 Ankle: Right 125 Left 124 Toe: Right 103 Left 48 CATHERINE: Right 0.86 Left 0.86 TBI: Right 0.71 Left 0.33 PULSED CUFF WAVEFORMS: Amplitude blunting in the right ankle and left toe waveforms. CONCLUSION: 1. Abnormal CATHERINE bilaterally. Segmental pressures suggest femoral popliteal disease on the right and i liofemoral disease on the left. CTA abdomen and runoff is recommended for anatomic characterization. 2. There also appears to be some intrinsic small vessel disease in the feet, particularly on the left . Getachew Rodriges MD on December 15, 2016 at 12:11 Board Certified Radiologist. This report was verified electronically.
--- NOTE | 2016-12-15 12:36 | HHI.IDPN ---
Subjective Subjective Remarks Notes reviewed Temps ok Had surgery this morning - amputation of L 4th toe C/S pending Pain under control Antibiotics Azactam/Levaquin Flagyl Vancomycin Lines PIV Past Medical History Diabetes Past Surgical History Right knee surgery Infection on the left foot and subsequent surgery after stepping on glass Allergies: Coded Allergies: Penicillin (Verified Allergy, Unknown, 12/14/16) Objective . Vital Signs Date Time Temp Pulse Resp B/P Pulse Ox O2 Delivery O2 Flow Rate FiO2 12/15/16 11:28 18 12/15/16 08:55 72 14 136/80 97 Nasal Cannula 2 12/15/16 08:45 71 12 136/78 98 Nasal Cannula 2 12/15/16 08:31 98.4 73 15 116/70 92 Nasal Cannula 2 12/15/16 04:00 97.5 68 20 119/63 97 12/15/16 00:00 99.3 70 20 127/61 98 12/14/16 20:00 99.9 79 20 133/65 98 12/14/16 19:15 98 12/14/16 14:48 71 20 169/82 96 Room Air 12/14/16 13:25 70 168/81 149/81 142/68 12/14/16 12/14/16 12/15/16 15:00 23:00 07:00 Intake Total 0 ml Output Total 240 ml Balance -240 ml Intake Oral 0 ml Output Urine Total 240 ml # Voids 2 # Bowel Movements 0 0 . Laboratory Tests Test 12/14/16 11:10 White Blood Count 9.6 TH/MM3 Red Blood Count 3.44 MIL/MM3 Hemoglobin 10.7 GM/DL Hematocrit 31.5 % Mean Corpuscular Volume 91.6 FL Mean Corpuscular Hemoglobin 31.2 PG Mean Corpuscular Hemoglobin 34.1 % Concent Red Cell Distribution Width 13.5 % Platelet Count 368 TH/MM3 Mean Platelet Volume 6.6 FL Neutrophils (%) (Auto) 72.8 % Lymphocytes (%) (Auto) 18.5 % Monocytes (%) (Auto) 7.3 % Eosinophils (%) (Auto) 0.9 % Basophils (%) (Auto) 0.5 % Neutrophils # (Auto) 7.0 TH/MM3 Lymphocytes # (Auto) 1.8 TH/MM3 Monocytes # (Auto) 0.7 TH/MM3 Eosinophils # (Auto) 0.1 TH/MM3 Basophils # (Auto) 0.0 TH/MM3 CBC Comment DIFF FINAL Differential Comment Erythrocyte Sedimentation Rate GREATER THAN 140 mm/hr Laboratory Tests Test 12/14/16 12/14/16 11:10 11:15 Sodium Level 138 MEQ/L Potassium Level 4.4 MEQ/L Chloride Level 110 MEQ/L Carbon Dioxide Level 19.4 MEQ/L Anion Gap 9 MEQ/L Blood Urea Nitrogen 19 MG/DL Creatinine 1.21 MG/DL Estimat Glomerular Filtration 63 ML/MIN Rate Random Glucose 116 MG/DL Calcium Level 8.7 MG/DL Phosphorus Level 3.4 MG/DL Magnesium Level 2.0 MG/DL Total Bilirubin 0.2 MG/DL Aspartate Amino Transf 28 U/L (AST/SGOT) Alanine Aminotransferase 29 U/L (ALT/SGPT) Alkaline Phosphatase 142 U/L Total Creatine Kinase 74 U/L Troponin I LESS THAN 0.02 NG/ML Total Protein 7.3 GM/DL Albumin 2.6 GM/DL Lactic Acid Level 0.9 mmol/L Microbiology Date/Time Procedure Status Source Growth 12/14/16 11:10 Aerobic Blood Culture - Preliminary Resulted Blood Peripheral NO GROWTH IN 1 DAY 12/14/16 11:10 Anaerobic Blood Culture - Preliminary Resulted Blood Peripheral NO GROWTH IN 1 DAY 12/14/16 11:15 Aerobic Blood Culture - Preliminary Resulted Blood Peripheral NO GROWTH IN 1 DAY 12/14/16 11:15 Anaerobic Blood Culture - Preliminary Resulted Blood Peripheral NO GROWTH IN 1 DAY 12/15/16 08:21 Gram Stain Received Wound Foot Pending 12/15/16 08:21 Wound Culture Received Wound Foot Pending 12/15/16 08:21 Acid Fast Stain Received Wound Foot Pending 12/15/16 08:21 Mycobacterial Culture Received Wound Foot Pending 12/15/16 08:21 Fungal Smear Received Wound Foot Pending 12/15/16 08:21 Fungal Culture Received Wound Foot Pending Imaging Chest X-Ray 12/14/16 1013 Signed Impressions: Service Date/Time: Wednesday, December 14, 2016 10:43 - CONCLUSION: No acute disease. Nando Odonnell MD FACR Foot X-Ray 12/14/16 0000 Signed Impressions: Service Date/Time: Wednesday, December 14, 2016 10:38 - CONCLUSION: Findings consistent with osteomyelitis fourth toe. Nando Odonnell MD FACR Ankle X-Ray 12/14/16 0000 Signed Impressions: Service Date/Time: Wednesday, December 14, 2016 10:41 - CONCLUSION: Generalized soft tissue swelling otherwise negative. Nando Odonnell MD FACR Physical Exam GENERAL: awake and alert, in no apparent distress. SKIN: Cool and dry. No generalized rash or ecchymosis. HEENT: [place] conjunctivae. No scleral icterus. Moist oral mucosa. NECK: Trachea midline. No JVD or lymphadenopathy. Supple, nontender, no meningeal signs. CARDIOVASCULAR: Regular rate and rhythm without murmurs, gallops, or rubs. RESPIRATORY: Clear to auscultation. Breath sounds equal bilaterally. No wheezes , rales, or rhonchi. GASTROINTESTINAL: Abdomen soft, non-tender, nondistended. Bowel sounds are present and normoactive. No hepato-splenomegaly, or palpable masses. No guarding. MUSCULOSKELETAL: RLE without clubbing, cyanosis, or edema. LLE no clubbing or cyanosis,. Has dressing on his L foot from OR this morning . No calf tenderness. Negative Homans sign bilaterally. NEUROLOGICAL: Non-focal PSYCH: Calm and cooperative LINE: PIV with no evidence of infection Assessment & Plan Remarks IMPRESSION Sepsis due to L foot infection Diabetic foot infection L with gangrene and osteo L 4th toe - usually polymicrobial - S/P amputation L 4th toe 12/15 Allergy to PCN - can't remember type of reaction - could not remember if he has taken any kind of Cephalosporins RECOMMENDATION Continue Azactam and Flagyl Continue Levaquin and Vancomycin Arterial doppler to check circulation Follow C/S Monitor progress Will likely not need long course of IV Abx since amputation has been done I will examine his L foot when ok with podiatry and determine course of Abx Tory To MD Dec 15, 2016 12:36
[2016-12-15 13:00] VITALS: BP 134/63; PULSE 78; RESP 17; TEMP 97.4; O2SAT 98
[2016-12-15 16:00] VITALS: BP 154/79; PULSE 69; RESP 18; TEMP 96.8; O2SAT 100
[2016-12-15 20:00] VITALS: BP 110/55; PULSE 67; RESP 20; TEMP 99.6; O2SAT 99
[2016-12-16] VITALS (8 sets, daily range): BP systolic 128–156; BP diastolic 60–75; PULSE 68–79; RESP 18–22; TEMP 96.9–99.6; O2SAT 97–99
[2016-12-16] MEDS: metroNIDAZOLE 500 MG TAB PO SCH ×4 (00:14→23:16)
[2016-12-16] MEDS: ACETAMINOPHEN/HYDROcodone 325 MG/5 MG TAB PO PRN ×2 (03:20→08:21)
[2016-12-16] MEDS: AZTREONAM INJ 2,000 MG in SODIUM CHLORIDE 0.9% INJ 100 ML IV SCH ×3 (06:14→21:43)
[2016-12-16] MEDS: INSULIN ASPART SUPPLEMENTAL SCALE SQ SCH ×4 (06:15→21:00)
--- NOTE | 2016-12-16 07:43 | PD.POD ---
Subjective Pain score: 5 Remarks Some foot pain overall doing well Past Med/Surg/Social History Social History Smoking Status: Current Every Day Smoker Objective Vital Signs Vital Signs Date Time Temp Pulse Resp B/P Pulse Ox O2 Delivery O2 Flow Rate FiO2 12/16/16 04:00 99.6 68 20 151/73 98 12/16/16 00:00 98.6 79 20 128/60 97 12/15/16 20:00 99.6 67 20 110/55 99 12/15/16 16:00 96.8 69 18 154/79 100 12/15/16 15:10 17 12/15/16 13:00 97.4 78 17 134/63 98 12/15/16 08:55 72 14 136/80 97 Nasal Cannula 2 12/15/16 08:45 71 12 136/78 98 Nasal Cannula 2 12/15/16 08:31 98.4 73 15 116/70 92 Nasal Cannula 2 Coded Allergies: Penicillin (Verified Allergy, Unknown, 12/14/16) Medications and IVs Administered Medications Medications (Trade) Dose Ordered Sig/Suzy Route PRN Reason Start Time Stop Time Status Last Admin Dose Admin Insulin Detemir (Levemir Inj) 30 units BID SQ 12/14/16 21:00 12/15/16 21:49 Acetaminophen/ Hydrocodone Bitart 1 tab 1 tab Q4H PRN PO PAIN > 5 12/14/16 13:30 12/16/16 03:20 Vancomycin HCl/ Sodium Chloride (Vancomycin Inj/ NS 500 ml Inj) 515 ml @ 250 mls/hr Q12H IV 12/14/16 20:00 12/15/16 21:49 Levofloxacin (Levaquin) 750 mg DAILY PO 12/15/16 09:00 12/15/16 09:50 Metronidazole 500 mg 500 mg Q8H PO 12/14/16 16:00 12/16/16 00:14 Aztreonam/Sodium Chloride (Azactam Inj/NS Inj) 100 ml @ 200 mls/hr Q8H IV 12/14/16 21:00 12/16/16 06:14 Nicotine (Habitrol 21 Mg Patch.24 Hr) 1 patch DAILY TD 12/14/16 18:00 12/15/16 09:50 Other Results Laboratory Tests Test 12/14/16 11:10 White Blood Count 9.6 TH/MM3 Red Blood Count 3.44 MIL/MM3 Hemoglobin 10.7 GM/DL Hematocrit 31.5 % Mean Corpuscular Volume 91.6 FL Mean Corpuscular Hemoglobin 31.2 PG Mean Corpuscular Hemoglobin 34.1 % Concent Red Cell Distribution Width 13.5 % Platelet Count 368 TH/MM3 Mean Platelet Volume 6.6 FL Neutrophils (%) (Auto) 72.8 % Lymphocytes (%) (Auto) 18.5 % Monocytes (%) (Auto) 7.3 % Eosinophils (%) (Auto) 0.9 % Basophils (%) (Auto) 0.5 % Neutrophils # (Auto) 7.0 TH/MM3 Lymphocytes # (Auto) 1.8 TH/MM3 Monocytes # (Auto) 0.7 TH/MM3 Eosinophils # (Auto) 0.1 TH/MM3 Basophils # (Auto) 0.0 TH/MM3 CBC Comment DIFF FINAL Differential Comment Erythrocyte Sedimentation Rate GREATER THAN 140 mm/hr Laboratory Tests Test 12/14/16 12/14/16 11:10 11:15 Sodium Level 138 MEQ/L Potassium Level 4.4 MEQ/L Chloride Level 110 MEQ/L Carbon Dioxide Level 19.4 MEQ/L Anion Gap 9 MEQ/L Blood Urea Nitrogen 19 MG/DL Creatinine 1.21 MG/DL Estimat Glomerular Filtration 63 ML/MIN Rate Random Glucose 116 MG/DL Calcium Level 8.7 MG/DL Phosphorus Level 3.4 MG/DL Magnesium Level 2.0 MG/DL Total Bilirubin 0.2 MG/DL Aspartate Amino Transf 28 U/L (AST/SGOT) Alanine Aminotransferase 29 U/L (ALT/SGPT) Alkaline Phosphatase 142 U/L Total Creatine Kinase 74 U/L Troponin I LESS THAN 0.02 NG/ML Total Protein 7.3 GM/DL Albumin 2.6 GM/DL Lactic Acid Level 0.9 mmol/L Microbiology Date/Time Procedure Status Source Growth 12/14/16 11:10 Aerobic Blood Culture - Preliminary Resulted Blood Peripheral NO GROWTH IN 1 DAY 12/14/16 11:10 Anaerobic Blood Culture - Preliminary Resulted Blood Peripheral NO GROWTH IN 1 DAY 12/14/16 11:15 Aerobic Blood Culture - Preliminary Resulted Blood Peripheral NO GROWTH IN 1 DAY 12/14/16 11:15 Anaerobic Blood Culture - Preliminary Resulted Blood Peripheral NO GROWTH IN 1 DAY 12/15/16 08:21 Gram Stain - Final Resulted Wound Foot 12/15/16 08:21 Wound Culture Resulted Wound Foot Pending 12/15/16 08:21 Acid Fast Stain Received Wound Foot Pending 12/15/16 08:21 Mycobacterial Culture Received Wound Foot Pending 12/15/16 08:21 Fungal Smear - Final Resulted Wound Foot NO FUNGAL ELEMENTS SEEN. 12/15/16 08:21 Fungal Culture Resulted Wound Foot Pending Physical Exam Remarks Left foot 4th digit amp site- incision edges well coapted with minimal drainage , no odor or necrosis, foot is warm sensation decreased to light touch Assessment & Plan A/P Left foot 4th digit gangrene. SP 4th digit Amputation 12/15. Bandage changed, improving, packing remains in, will removed in 1 day, Wd Cx and path pending, anticipate DC 1-2 days pending surgical Cx. Ok w ID removing bandage to examine. Fu tomorrow. Michael Wagner DPM Dec 16, 2016 07:43
[2016-12-16] MEDS ORDERED: PHARMACY ORDERED LAB XX ONE (07:45)
[2016-12-16] MEDS: INSULIN DETEMIR 100 UNITS/ML VIAL SQ SCH (08:21)
[2016-12-16] MEDS: LEVOFLOXACIN 750 MG TAB PO SCH (08:21)
[2016-12-16] MEDS: NICOTINE 21 MG/24 HR PATCH TD SCH (08:22)
[2016-12-16] MEDS: REMOVE OLD NICODERM (NICOTINE) PATCH TD SCH (08:22)
[2016-12-16] MEDS: VANCOMYCIN INJ 1,500 MG in SODIUM CHLORID 0.9% 500 ML INJ 500 ML IV SCH (08:27)
--- NOTE | 2016-12-16 10:53 | HHI.PR ---
Subjective Remarks The patient was complaining of pain in his left foot. He says the medications work but don't last a long time. He has no other acute issues. Has been having bowel movements. Family and nursing at the bedside. Objective Vitals Vital Signs Date Time Temp Pulse Resp B/P Pulse Ox O2 Delivery O2 Flow Rate FiO2 12/16/16 08:00 96.9 78 18 151/73 98 12/16/16 04:00 99.6 68 20 151/73 98 12/16/16 00:00 98.6 79 20 128/60 97 12/15/16 20:00 99.6 67 20 110/55 99 12/15/16 16:00 96.8 69 18 154/79 100 12/15/16 15:10 17 12/15/16 13:00 97.4 78 17 134/63 98 I/O 12/15/16 12/15/16 12/15/16 12/16/16 12/16/16 12/16/16 07:00 15:00 23:00 07:00 15:00 23:00 Intake Total 1930 ml 480 ml 220 ml Output Total 1018 ml Balance 912 ml 480 ml 220 ml Intake Oral 720 ml 480 ml 220 ml IV Total 710 ml Other 500 ml Output Urine Total 1000 ml Estimated Blood Loss 18 ml # Voids 2 1 3 # Bowel Movements 0 0 0 0 Result Diagram: 12/14/16 1110 12/16/16 0653 Imaging Last Impressions Chest X-Ray 12/14/16 1013 Signed Impressions: Service Date/Time: Wednesday, December 14, 2016 10:43 - CONCLUSION: No acute disease. Nando Odonnell MD FACR Foot X-Ray 12/14/16 0000 Signed Impressions: Service Date/Time: Wednesday, December 14, 2016 10:38 - CONCLUSION: Findings consistent with osteomyelitis fourth toe. Nando Odonnell MD FACR Ankle X-Ray 12/14/16 0000 Signed Impressions: Service Date/Time: Wednesday, December 14, 2016 10:41 - CONCLUSION: Generalized soft tissue swelling otherwise negative. Nando Odonnell MD FACR Objective Remarks GENERAL: This is a well-nourished, well-developed patient, in no apparent distress. HEENT: NC, AT. CARDIOVASCULAR: Regular rate and regular rhythm without murmurs, gallops, or rubs. RESPIRATORY: Clear to auscultation. Breath sounds equal bilaterally. No wheezes , rales, or rhonchi. GASTROINTESTINAL: Abdomen soft, non-tender, nondistended. Normal, active bowel sounds. MUSCULOSKELETAL: Left foot covered with clean dressing. RLE with no edema. NEURO: Alert & Oriented x4 to person, place, time, situation. Moves all ext x4. PSYCH: Mood and affect appropriate. Procedures Left 4th digit amputation, incision and drainage left foot Medications and IVs Current Medications Medications (Trade) Dose Ordered Sig/Suzy Route Start Time Stop Time Status Last Admin (Tylenol) 650 mg Q4H PRN PO 12/14/16 13:00 (D50w (Vial) Inj) 25 ml UNSCH PRN IV PUSH 12/14/16 13:00 (Glucagon Inj) 1 mg UNSCH PRN OTHER 12/14/16 13:00 Ondansetron HCl 4 mg 4 mg Q8HR PRN IV PUSH 12/14/16 13:00 (Vancomycin Consult Pharmacy) 0 ml @ 0 mls/hr UNSCH OTHER 12/14/16 13:15 (Levemir Inj) 30 units BID SQ 12/14/16 21:00 12/16/16 08:21 Acetaminophen/ Hydrocodone Bitart 1 tab 1 tab Q4H PRN PO 12/14/16 13:30 12/16/16 08:21 (Vancomycin Inj/ NS 500 ml Inj) 515 ml @ 250 mls/hr Q12H IV 12/14/16 20:00 12/16/16 08:27 (Levaquin) 750 mg DAILY PO 12/15/16 09:00 12/16/16 08:21 Metronidazole 500 mg 500 mg Q8H PO 12/14/16 16:00 12/16/16 08:21 (Azactam Inj/NS Inj) 100 ml @ 200 mls/hr Q8H IV 12/14/16 21:00 12/16/16 06:14 (Habitrol 21 Mg Patch.24 Hr) 1 patch DAILY TD 12/14/16 18:00 12/16/16 08:22 Miscellaneous Information 1 DAILY TD 12/14/16 18:00 12/16/16 08:22 (Percocet 7.5-325 Mg) 1 tab Q4H PRN PO 12/15/16 09:00 A/P Problem List: (1) Osteomyelitis of toe ICD Code: M86.9 Status: Acute Assessment and Plan Osteomyelitis of the left fourth toe Podiatry consult appreciated, s/p left 4th digit amputation, incision and drainage left foot. ID consult appreciated. - continue with broad-spectrum IV antibiotics per ID. Will likely need prolonged course of IV antibiotics upon discharge. - continue pain control with a bowel regimen. - will follow cultures and pathology. - follow up with podiatry. Diabetes mellitus Glucose well controlled at this time. - continue Levemir 30 units daily and 20 units HS, adjust as needed. - accu-check with SSI. HTN Likely exacerbated by pain. - pain control. - Vasotec as needed. DVT prophylaxis: when ok with surgery. Discharge Planning Awaiting clinical improvement. Keyon Ramírez DO Dec 16, 2016 10:53
[2016-12-16] MEDS ORDERED: SENNOSIDES 8.6 MG TAB PO SCH (11:00)
[2016-12-16] MEDS ORDERED: ENALAPRILAT 1.25 MG/ML VIAL IV PUSH PRN (11:00)
[2016-12-16] MEDS ORDERED: DOCUSATE SODIUM 100 MG CAP PO SCH (11:00)
--- NOTE | 2016-12-16 13:33 | MP ---
cc: MISTY ANDERSON DPM DATE OF SURGERY 12/16/2016 PREOPERATIVE DIAGNOSIS Left fourth digit gangrene abscess foot. POSTOPERATIVE DIAGNOSIS Left fourth digit gangrene abscess foot. PROCEDURES PERFORMED Left fourth digit amputation with incision and drainage deep left foot. ANESTHESIA General with local 20 cc of 0.25% Marcaine plain ANKLE TOURNIQUET 250 approximately 20 minutes about the patient's left ankle. ESTIMATED BLOOD LOSS Less than 30 mL PATHOLOGY Digit for routine path and deep culture at amputation site for microbial analysis. COMPLICATIONS None PROCEDURE IN DETAIL Under mild sedation, the patient was brought into the operating room, placed on the operating table in the supine position. Following the induction of LMA general anesthesia, local anesthesia was obtained about the hind foot anesthetizing the forefoot utilizing standard block fashion. The patient's left foot was then scrubbed, prepped and draped in the usual aseptic fashion. The foot was elevated, exsanguinated and the previously placed mid ankle turn was inflated to 250 mmHg. A fishmouth type incision was made encompassing a necrotic foul odor entirely black fourth digit down to the fourth MPJ. Sharp and blunt dissection was carried down to the level the fourth MPJ and with the head of the fourth metatarsals palpated, it was clinically hard without any signs of deficit or signs of clinical osteomyelitis. A deep culture and tissue culture was taken at this time. All necrotic tissue was debrided to viable bleeding tissue. The tourniquet dropped, pulse lavage took place. The skin was reapproximated loosely with packing. There was good capillary fill time to the remaining digits. A bulky bandage was placed. The patient transferred from OR to PACU with all vital signs stable. Recommendation is to continue to follow along clinically. There was deep infection at this point. We will await culture. The patient may benefit from one to two weeks of IV antibiotics. I will follow along and advise. OLU Jensen/AUGUSTINE /8:37 AM /1:29 PM
--- NOTE | 2016-12-16 15:32 | HHI.IDPN ---
Subjective Subjective Remarks Notes reviewed Temps ok S/O amp L 4th toe C/S pending Pain under better control since meds changed Antibiotics Azactam/Levaquin Flagyl Vancomycin Lines PIV Past Medical History Diabetes Past Surgical History Right knee surgery Infection on the left foot and subsequent surgery after stepping on glass Allergies: Coded Allergies: Penicillin (Verified Allergy, Unknown, 12/14/16) Objective . Vital Signs Date Time Temp Pulse Resp B/P Pulse Ox O2 Delivery O2 Flow Rate FiO2 12/16/16 13:49 97 21 12/16/16 12:00 97.0 70 18 143/75 98 12/16/16 08:00 96.9 78 18 151/73 98 12/16/16 04:00 99.6 68 20 151/73 98 12/16/16 00:00 98.6 79 20 128/60 97 12/15/16 20:00 99.6 67 20 110/55 99 12/15/16 16:00 96.8 69 18 154/79 100 12/15/16 12/15/16 12/16/16 15:00 23:00 07:00 Intake Total 1930 ml 480 ml 220 ml Output Total 1018 ml Balance 912 ml 480 ml 220 ml Intake Oral 720 ml 480 ml 220 ml IV Total 710 ml Other 500 ml Output Urine Total 1000 ml Estimated Blood Loss 18 ml # Voids 1 3 # Bowel Movements 0 0 0 . Laboratory Tests Test 12/16/16 06:53 Creatinine 1.19 MG/DL Estimat Glomerular Filtration 64 ML/MIN Rate Microbiology Date/Time Procedure Status Source Growth 12/14/16 11:10 Aerobic Blood Culture - Preliminary Resulted Blood Peripheral NO GROWTH IN 2 DAYS 12/14/16 11:10 Anaerobic Blood Culture - Preliminary Resulted Blood Peripheral NO GROWTH IN 2 DAYS 12/14/16 11:15 Aerobic Blood Culture - Preliminary Resulted Blood Peripheral NO GROWTH IN 2 DAYS 12/14/16 11:15 Anaerobic Blood Culture - Preliminary Resulted Blood Peripheral NO GROWTH IN 2 DAYS 12/15/16 08:21 Gram Stain - Final Resulted Wound Foot 12/15/16 08:21 Wound Culture - Preliminary Resulted Wound Foot 12/15/16 08:21 Acid Fast Stain - Final Resulted Wound Foot NO ACID FAST BACILLI SEEN 12/15/16 08:21 Mycobacterial Culture Resulted Wound Foot Pending 12/15/16 08:21 Fungal Smear - Final Resulted Wound Foot NO FUNGAL ELEMENTS SEEN. 12/15/16 08:21 Fungal Culture Resulted Wound Foot Pending Imaging Chest X-Ray 12/14/16 1013 Signed Impressions: Service Date/Time: Wednesday, December 14, 2016 10:43 - CONCLUSION: No acute disease. Nando Odonnell MD FACR Foot X-Ray 12/14/16 0000 Signed Impressions: Service Date/Time: Wednesday, December 14, 2016 10:38 - CONCLUSION: Findings consistent with osteomyelitis fourth toe. Nando Odonnell MD FACR Ankle X-Ray 12/14/16 0000 Signed Impressions: Service Date/Time: Wednesday, December 14, 2016 10:41 - CONCLUSION: Generalized soft tissue swelling otherwise negative. Nando Odonnell MD FACR Physical Exam GENERAL: awake and alert, NAD. SKIN: Cool and dry. No generalized rash HEENT: [place] conjunctivae. No scleral icterus. Moist oral mucosa. NECK: Trachea midline. No JVD or lymphadenopathy. Supple, nontender, no meningeal signs. CARDIOVASCULAR: Regular rate and rhythm without murmurs, gallops, or rubs. RESPIRATORY: Clear to auscultation. Breath sounds equal bilaterally. No wheezes , rales, or rhonchi. GASTROINTESTINAL: Abdomen soft, non-tender, nondistended. Bowel sounds are present and normoactive. No hepato-splenomegaly, or palpable masses. No guarding. MUSCULOSKELETAL: RLE without clubbing, cyanosis, or edema. L foot - dressing removed, has blood on the 4 x 4, no erythema noted on dorsum of his L foot, sutures are intact has iodoform packing, no purulence, edema has improved. No calf tenderness. Negative Homans sign bilaterally. NEUROLOGICAL: Non-focal PSYCH: Calm and cooperative LINE: PIV with no evidence of infection Assessment & Plan Remarks IMPRESSION Sepsis due to L foot infection Diabetic foot infection L with gangrene and osteo L 4th toe - usually polymicrobial - S/P amputation L 4th toe 12/15, C/S pending Allergy to PCN - can't remember type of reaction - could not remember if he has taken any kind of Cephalosporins RECOMMENDATION Continue Azactam and Flagyl Continue Levaquin and Vancomycin Since infected toe has been removed, ok with me to give oral Abx on D/C If C/S negative, Clinda + Cipro x 7-10 days If C/S (+), adjust Abx based on C/S Follow C/S Monitor progress Explained plan to patient Will have HEPAS follow C/S and if with any question regarding the results, inform ID coverage I am off this , and will be beack on Monday Tory To MD Dec 16, 2016 15:32
[2016-12-16] MEDS: DOCUSATE SODIUM 100 MG CAP PO SCH (19:55)
[2016-12-16] MEDS: VANCOMYCIN INJ 1,250 MG in SODIUM CHLOR 0.9% 250 ML INJ 250 ML IV SCH (19:56)
[2016-12-16] MEDS ORDERED: INSULIN DETEMIR 100 UNITS/ML VIAL SQ SCH (21:00)
[2016-12-17] VITALS: BP 126/60; PULSE 64; RESP 15; TEMP 98.4; O2SAT 96
[2016-12-17] MEDS: AZTREONAM INJ 2,000 MG in SODIUM CHLORIDE 0.9% INJ 100 ML IV SCH ×2 (06:00→13:28)
[2016-12-17] MEDS: INSULIN ASPART SUPPLEMENTAL SCALE SQ SCH ×2 (06:09→11:00)
[2016-12-17 07:40] VITALS: BP 116/61; PULSE 64; RESP 19; TEMP 97.7; O2SAT 98
[2016-12-17] MEDS ORDERED: CLIN1CAP6 PO (08:45)
[2016-12-17] MEDS ORDERED: PERC5TAB12 PO (08:46)
--- NOTE | 2016-12-17 08:51 | PD.POD ---
Subjective Pain score: 5 Remarks Some foot pain overall doing well Past Med/Surg/Social History Social History Smoking Status: Current Every Day Smoker Objective Vital Signs Vital Signs Date Time Temp Pulse Resp B/P Pulse Ox O2 Delivery O2 Flow Rate FiO2 12/17/16 07:40 97.7 64 19 116/61 98 12/17/16 00:00 98.4 64 15 126/60 96 12/16/16 20:00 98.0 79 22 156/72 99 12/16/16 18:23 98 21 12/16/16 16:00 98.1 69 18 141/75 98 12/16/16 13:49 97 21 12/16/16 12:00 97.0 70 18 143/75 98 Coded Allergies: Penicillin (Verified Allergy, Unknown, 12/14/16) Physical Exam Remarks Left foot 4th digit amp site- incision edges well coapted with minimal drainage , no odor or necrosis, foot is warm sensation decreased to light touch Assessment & Plan A/P Left foot 4th digit gangrene. SP 4th digit Amputation 12/15. Bandage changed, much improved, packing removed Wd Cx gm +?, final result pending, ok to DC, PO Clindamycin. Patients instructed on bandage change betadine swab to wound edge 4x4 eugenio wrap everyother day, Suman Dimas next week, limited walking and standing, see orders in chart Rx in chart. Michael Wagner DPM Dec 17, 2016 08:51
[2016-12-17] MEDS: REMOVE OLD NICODERM (NICOTINE) PATCH TD SCH (09:00)
[2016-12-17] MEDS: DOCUSATE SODIUM 100 MG CAP PO SCH (09:00)
[2016-12-17] MEDS ORDERED: INSULIN DETEMIR 100 UNITS/ML VIAL SQ SCH (09:00)
[2016-12-17] MEDS: NICOTINE 21 MG/24 HR PATCH TD SCH (10:07)
[2016-12-17 10:08] VITALS: O2SAT 98
[2016-12-17] MEDS: metroNIDAZOLE 500 MG TAB PO SCH (10:08)
[2016-12-17] MEDS: LEVOFLOXACIN 750 MG TAB PO SCH (10:09)
[2016-12-17] MEDS: ACETAMINOPHEN/HYDROcodone 325 MG/5 MG TAB PO PRN ×2 (10:10→13:28)
[2016-12-17] MEDS: VANCOMYCIN INJ 1,250 MG in SODIUM CHLOR 0.9% 250 ML INJ 250 ML IV SCH (10:39)
[2016-12-17 11:13] VITALS: BP 154/74; PULSE 65; RESP 19; TEMP 97.5; O2SAT 99
[2016-12-17] MEDS ORDERED: NICO21DI2 TD (14:23)
[2016-12-17] MEDS ORDERED: CIPR500T2 PO (14:23)
--- NOTE | 2016-12-17 14:26 | HHI.DCPOC ---
Discharge Care Plan Diagnosis: (1) Osteomyelitis of toe Goals to Promote Your Health * To prevent worsening of your condition and complications * To maintain your health at the optimal level Directions to Meet Your Goals Take your medications as prescribed Follow your dietary instruction Follow activity as directed Keep your appointments as scheduled Take your immunizations and boosters as scheduled If your symptoms worsen call your PCP, if no PCP go to Urgent Care Center or Emergency Room Smoking is Dangerous to Your Health. Avoid second hand smoke Call the 24-hour hour crisis hotline for domestic abuse at Keyon Ramírez DO Dec 17, 2016 14:26
--- NOTE | 2016-12-17 14:29 | HHI.DS ---
Discharge Summary Admission Date Dec 14, 2016 at 12:59 Discharge Date: Dec 17, 2016 Admitting Diagnosis Osteomyelitis and gangrene of toe. (1) Osteomyelitis of toe ICD Code: M86.9 Diagnosis: Principal Procedures Left 4th digit amputation, incision and drainage left foot Brief History - From Admission patient is a 51 y/o male with history of diabetes who was sent to the hospital because of the worsening infection of the left fourth toe. he says that it started two weeks ago with some swelling and pain to the site. he took two different antibiotics for two weeks with no significant improvement. he reports low grade fever at home. he was seen by his long lines operator and was supposed to come to the hospital yesterday but he says that he didn't want to wait that long. pain was mild at the time of my evaluation. he denies any other complaints. CBC/BMP: 12/14/16 1110 12/16/16 0653 Significant Findings Laboratory Tests Test 12/16/16 06:53 Estimat Glomerular Filtration 64 ML/MIN (>89) Rate Vancomycin Level Trough 22.5 MCG/ML (5.0-10.0) Imaging Last Impressions Chest X-Ray 12/14/16 1013 Signed Impressions: Service Date/Time: Wednesday, December 14, 2016 10:43 - CONCLUSION: No acute disease. Nando Odonnell MD FACR Foot X-Ray 12/14/16 0000 Signed Impressions: Service Date/Time: Wednesday, December 14, 2016 10:38 - CONCLUSION: Findings consistent with osteomyelitis fourth toe. Nando Odonnell MD FACR Ankle X-Ray 12/14/16 0000 Signed Impressions: Service Date/Time: Wednesday, December 14, 2016 10:41 - CONCLUSION: Generalized soft tissue swelling otherwise negative. Nando Odonnell MD FACR PE at Discharge GENERAL: This is a well-nourished, well-developed patient, in no apparent distress. HEENT: NC, AT. CARDIOVASCULAR: Regular rate and regular rhythm without murmurs, gallops, or rubs. RESPIRATORY: Clear to auscultation. Breath sounds equal bilaterally. No wheezes , rales, or rhonchi. GASTROINTESTINAL: Abdomen soft, non-tender, nondistended. Normal, active bowel sounds. MUSCULOSKELETAL: Left foot covered with clean dressing. RLE with no edema. NEURO: Alert & Oriented x4 to person, place, time, situation. Moves all ext x4. PSYCH: Mood and affect appropriate. Pt update on day of discharge The patient was feeling well this morning. He said the pain medication was working. He said he will follow-up with podiatry as an outpatient. Hospital Course Osteomyelitis of the left fourth toe Podiatry and infectious disease were consulted. S/p left 4th digit amputation, incision and drainage of left foot. He was continued on broad-spectrum IV antibiotics per ID. Wound culture grew normal skin gene. He will be discharged on clindamycin and Cipro. He will follow up with podiatry. He received pain control with a bowel regimen. Pathology currently pending. Diabetes mellitus He was placed on Levemir 30 units daily and 20 units HS, as well as accu-check with SSI. He will resume his home regimen upon discharge. Pt Condition on Discharge: Good Discharge Disposition: Discharge Home Discharge Time: > 30 minutes Discharge Instructions DIET: Follow Instructions for: Diabetic Diet Activities you can perform: See Additionl Instruction Follow up Referrals: PCP Follow-up - [address] Dimas for appt next Week in [place] New Medications: Clindamycin (Clindamycin) 300 Mg Cap 300 MG PO TID Infection Days 7 Ref 0 CAP Oxycodone-Acetaminophen (Percocet) 5-325 mg Tab 1 TAB PO Q6H PRN PAIN Days 7 Ref 0 TAB Nicotine Patch (Nicotine Patch) 21 Mg/24 Hr Patch 1 PATCH TD DAILY SMOKING #30 PATCH Continued Medications: Ciprofloxacin (Ciprofloxacin) 500 Mg Tab 500 MG PO BID Infection #14 Ref 0 TAB (This prescription has been renewed) Insulin Aspart Inj (Novolog Inj) 1,000 Unit/10 Ml Vial 0 SQ DIRECTED Sliding Scale as directed. Blood Sugar Management #10 Ref 0 ML Insulin Glargine Inj (Lantus Inj) 1,000 Unit/10 Ml Vial 30 UNITS SQ BID Blood Sugar Management Ref 0 VIAL Keyon Ramírez DO Dec 17, 2016 14:29
[2016-12-18] MEDS ORDERED: PHARMACY ORDERED LAB XX ONE (07:45)
== END 2016-12-17 15:33 | disposition home or self-care (01) | DRG 240 ==
LOC: NEPD 08:08 → NEDA 12:59 → N05A 19:16
PROVIDERS: ADMIT Hospitalist; ATTEND Hospitalist
PROC: 0Y6N0ZD Detachment at Left Foot, Partial 4th Ray, Open Approach (ICD-10-PCS; principal; 2016-12-15 07:42)
DX: E11.52 Type 2 diabetes mellitus with diabetic peripheral angiopathy with gangrene (principal); L03.116 Cellulitis of left lower limb; E11.628 Type 2 diabetes mellitus with other skin complications; M86.9 Osteomyelitis, unspecified; E11.65 Type 2 diabetes mellitus with hyperglycemia; E11.69 Type 2 diabetes mellitus with other specified complication; F17.210 Nicotine dependence, cigarettes, uncomplicated; Z88.0 Allergy status to penicillin; G62.9 Polyneuropathy, unspecified; Z83.3 Family history of diabetes mellitus; Z79.4 Long term (current) use of insulin
CPT/HCPCS: 71010; 73610; 73630; 80053; 80202; 82550; 82565; 82948; 83605; 83735; 84100; 84484; 85025; 85610; 85652; 85730; 87015; 87040; 87070; 87102; 87116; 87205; 87206; 88305; 88311; 93005; 93923; 96365; J1815; J1956; J2250; J2370; J2405; J3010; J3370; J7040; J7050; L3260